=== PATIENT | female | born 1980 | race Hispanic/Latino ===

== ENCOUNTER 2020-03-21 11:24 | Emergency (ER) | payer OTHER | END 2020-03-21 13:21 | disposition home or self-care (01) | LOC: ERS 11:24 | DX: K03.81 Cracked tooth (principal); F41.9 Anxiety disorder, unspecified; F32.9 Major depressive disorder, single episode, unspecified; F20.9 Schizophrenia, unspecified; F17.210 Nicotine dependence, cigarettes, uncomplicated; K02.9 Dental caries, unspecified | CPT/HCPCS: 99282 ==

== ENCOUNTER 2022-08-28 09:51 | Outpatient (CLI) | payer OTHER | END 2022-08-28 09:52 | disposition home or self-care (01) | LOC: ULT 09:51 | PROVIDERS: ATTEND Student in an Organized Health Care Education/Training Program | DX: R25.2 Cramp and spasm (principal); M79.604 Pain in right leg ==

== ENCOUNTER 2023-05-22 13:44 | Outpatient (CLI) | payer OTHER | END 2023-05-22 13:45 | disposition home or self-care (01) | LOC: RAD 13:44 | PROVIDERS: ATTEND Nurse Practitioner Family | DX: M25.531 Pain in right wrist (principal) ==

== ENCOUNTER 2024-05-02 09:39 | Emergency (ER) | payer OTHER ==
[2024-05-02] MEDS ORDERED: Ondansetron PF 4 MG/2 ML Vial ONE ×2 (10:37→13:22)
[2024-05-02] MEDS ORDERED: Morphine 4 MG/ML VIAL ONE ×2 (10:37→13:22)
[2024-05-02 10:58] LABS: #Basophils Less than 0.03 10x3/uL (0.0-0.2); %Basophils 0.3 % (0.0-1.0); %Eosinophils 2.2 % (0.0-10.0); %Lymphocytes 29.7 % (21.0-51.0); %Monocytes 7.5 % (0.0-10.0); Hematocrit 44.2 % (36.0-47.0); Hemoglobin 15.2 g/dL (12.0-16.0); Mean Corpuscular HGB CONC 34.4 g/dL (32.0-36.0); Mean Corpuscular Hemoglobin 33.2 pg (27.0-31.0); Mean Corpuscular Volume 96.5 fL (78.0-98.0); Mean Platelet Volume 11.8 fL (7.4-10.4); Platelet Count 189 10x3/uL (130-400); RBC Distribution Width 12.6 % (11.5-14.5); Red Blood Cell (RBC) Count 4.58 mill/uL (4.20-5.40)
[2024-05-02 11:03] LABS: Bacteria/HPF None Seen HPF (None Seen); Bilirubin Negative (Negative); Blood, Urine Negative (Negative); CAUTI Indications for Culture Pelvic or flank pain; Clarity Clear (Clear); Glucose, Urine (Dipstick) Normal (Negative); Ketone, Urine Negative (Negative); Leukocyte Negative Leu/uL (Negative); Nitrite Negative (Negative); Protein, Urine (Dipstick) 10 mg/dL (Neg-Trace); RBC/HPF 0-3 HPF (0-3); Specific Gravity, Urine 1.023 (1.002-1.036); Squamous Epithelial 0-3 HPF (0-3); Urobilinogen Normal mg/dL (Less than 2); WBC/HPF 0-3 HPF (0-3); pH, Urine 6.5 (5.0-9.0)
[2024-05-02 11:09] LABS: Pregnancy Test - Urine (BHCG) Negative (Negative); Pregu Control Background? CLEAR/WHITE (CLR/WHITE); Pregu Control Bar Appear? YES (CONTROL BAR); Specific Gravity 1.023 (1.002-1.036); Urine Culture Reflex No No
[2024-05-02 11:14] LABS: ALT (SGPT) 40 U/L (8-55); AST (SGOT) 33 U/L (5-34); Albumin 3.7 g/dL (3.5-5.0); Alkaline Phosphatase 66 U/L (40-110); Anion Gap 14 mmol/L (10-20); BUN (Urea Nitrogen) 10 mg/dL (7.0-18.7); Bilirubin, Total 0.7 mg/dL (0.2-1.2); Calc. Creatinine Clearance 0 mL/min (70-130); Calcium 9.9 mg/dL (7.8-10.44); Carbon Dioxide 21 mmol/L (22-29); Chloride 108 mmol/L (98-107); Estimated GFR 91; Globulin 4.3 g/dL (2.4-3.5); Glucose 88 mg/dL (70-105); Lipase 16 U/L (8-78); Sodium 139 mmol/L (136-145)
[2024-05-02 11:30] LABS: Troponin I Less than 0.010 ng/mL (< 0.028)
[2024-05-02] MEDS ORDERED: Iopamidol-370 76% 500 ML MDV (1 ML CHARGE) ONE (12:01)
== END 2024-05-02 15:41 | disposition home or self-care (01) ==
LOC: ERS 09:39
DX: K76.0 Fatty (change of) liver, not elsewhere classified (principal); F17.290 Nicotine dependence, other tobacco product, uncomplicated
CPT/HCPCS: 36415; 71045; 74177; 76705; 80053; 81001; 81025; 83690; 84484; 85025; 93005; 96374; 96375; 96376; J2272; J2405; Q9967

== ENCOUNTER 2025-04-02 16:00 | Emergency (ER) | payer OTHER ==
[2025-04-02 16:58] LABS: #Basophils Less than 0.03 10x3/uL (0.0-0.2); #Eosinophils 0.28 10x3/uL (0.0-0.7); #Monocytes 0.43 10x3/uL (0.11-0.59); #Neutrophils 3.49 10x3/uL (1.40-6.50); %Basophils 0.4 % (0.0-1.0); %Eosinophils 5.0 % (0.0-10.0); %Lymphocytes 24.3 % (21.0-51.0); %Monocytes 7.7 % (0.0-10.0); %Neutrophils 62.2 % (42.0-75.0); Hematocrit 39.9 % (36.0-47.0); Hemoglobin 13.8 g/dL (12.0-16.0); Mean Corpuscular Hemoglobin 32.3 pg (27.0-31.0); Mean Corpuscular Volume 93.4 fL (78.0-98.0); Platelet Count 148 10x3/uL (130-400); Red Blood Cell (RBC) Count 4.27 mill/uL (4.20-5.40); White Blood Cell (WBC) Count 5.60 10x3/uL (4.8-10.8)
[2025-04-02 17:13] LABS: ALT (SGPT) 58 U/L (Less than 34); AST (SGOT) 39 U/L (11-34); Albumin 3.9 g/dL (3.1-4.5); Alkaline Phosphatase 74 U/L (40-110); Anion Gap 13 mmol/L (10-20); BUN (Urea Nitrogen) 11 mg/dL (7.0-18.7); Bilirubin, Total 0.4 mg/dL (0.3-1.2); Calc. Creatinine Clearance 0 mL/min (70-130); Calcium 9.4 mg/dL (7.8-10.44); Carbon Dioxide 21 mmol/L (22-29); Chloride 108 mmol/L (98-107); Globulin 3.8 g/dL (2.4-3.5); Glucose 90 mg/dL (70-105); Potassium 3.7 mmol/L (3.5-5.1); Sodium 138 mmol/L (136-145)
[2025-04-02] MEDS ORDERED: HYDROmorphone 0.5 MG/0.5 ML SYRINGE ONE ×2 (17:20→17:25)
[2025-04-02] MEDS ORDERED: Ketorolac Tromethamine 30 MG (1 mL) VIAL ONE ×2 (21:53→21:54)
[2025-04-02 21:55] LABS: Bacteria/HPF None Seen HPF (None Seen); CAUTI Indications for Culture Pelvic or flank pain; Glucose, Urine (Dipstick) Normal (Negative); Leukocyte Negative Leu/uL (Negative); Protein, Urine (Dipstick) Negative (Neg-Trace); RBC/HPF 0-3 HPF (0-3); Specific Gravity, Urine 1.006 (1.002-1.036); WBC/HPF 0-3 HPF (0-3)
[2025-04-02 21:56] LABS: Urine Culture Reflex No No
[2025-04-03] MEDS ORDERED: HYDROmorphone 0.5 MG/0.5 ML SYRINGE SLOW IVP SCH (00:45)
== END 2025-04-03 00:48 | disposition home or self-care (01) ==
LOC: ERS 16:00
DX: M54.50 Low back pain, unspecified (principal); F17.290 Nicotine dependence, other tobacco product, uncomplicated
CPT/HCPCS: 74176; 80053; 81001; 85025; 96374; 96375; 96376; J1171; J1885